=== PATIENT | female | born 1980 | race Caucasian/White ===

== ENCOUNTER 2017-08-29 13:35 | Emergency (ER) | payer OTHER ==
[2017-08-29 13:54] VITALS: TEMP 98.6; BMI 36.8
--- NOTE | 2017-08-29 13:54 | PDOC ---
History of Present Illness - General Chief Complaint: Headache Stated Complaint: HEADACHE Time Seen by Provider: 08/29/17 13:50 - History of Present Illness Initial Comments: 08/29/17 17:00 Chief complaint: Neck and shoulder pain History of present illness: Pain and stiffness over the posterior scalp, lateral neck left, and left trapezius area for approximately 1 week. This is similar to chronic pain in this area that the patient has been experiencing for years, subsequent to craniotomy for Chiari malformation, but more severe this past week. However, she states that "this is not a headache". Review of systems: No fever/chills, URI symptoms, sore throat, cough, chest pain , shortness of breath, abdominal pain, nausea, vomiting, diarrhea, visual or focal neurologic symptoms, unsteadiness of gait. There is been no trauma to the head or neck. She admits stress/anxiety Past medical history: Decompression surgery for Chiari malformation 2004, followed by neurologist, no serious sequelae other than persistent pain in the area of surgery. Mild hypertension controlled by diet. One baby aspirin for prophylaxis Social/family history: No drugs or alcohol or tobacco. Admits to increased stress and anxiety. Otherwise negative Physical exam: Alert and oriented 3, well-developed well-nourished, no acute distress, cooperative. Specifically, does not appear to be in significant pain Afebrile, vital signs normal except for borderline high blood pressure PERRLA, fundi benign, ENT clear. Specifically, optic disks are sharp and central venous pulsations are preserved Neck supple without bruit mass or nodes. There is mild tenderness and spasm over the lateral neck muscles on the left and the trapezius muscle on the left. There is full range of motion of the shoulder without increased pain. There is mild stiffness and pain with patient, flexion, and extension Chest clear to P&A. CV regular without murmur rub or gallop Abdomen benign Neurological C2 to 12 intact. Strength full and symmetric. No focal sensory or motor deficits. Cerebellar function intact. Gait stable and unimpaired Impression: Musculoskeletal pain, CHF, anxiety and stress. This does not appear to be a true headache or due to intracranial lesion Plan: Head CT and further evaluation and treatment depending on results. Past History - Past Medical History Allergies/Adverse Reactions: Allergies Allergy/AdvReac Type Severity Reaction Status Date / Time albiglutide [From Tanzeum] Allergy Mild redness Verified 08/29/17 13:43 and itching at injection site Home Medications: Ambulatory Orders Aspirin [ASA -] 81 mg PO HS 05/03/16 Ascorbic Acid [C-500] 500 mg PO DAILY 08/29/17 Cholecalciferol (Vitamin D3) [Vitamin D3] 1,000 unit PO DAILY 08/29/17 Ibuprofen [Advil -] 800 mg PO TID PRN 08/29/17 COPD: No Diabetes: Yes (TYPE II) HTN: Yes - Surgical History Neurologic Surgery: Yes (BRAIN DECOMPRESSION FOR LILIAN RIVERA 2004) - Suicide/Smoking/Psychosocial Hx Smoking History: Never smoked Hx Alcohol Use: Yes (RARE) Drug/Substance Use Hx: No Substance Use Type: None *Physical Exam - Vital Signs Last Vital Signs Temp Pulse Resp BP Pulse Ox 98.6 F 105 H 16 157/94 98 08/29/17 13:43 08/29/17 13:43 08/29/17 13:43 08/29/17 13:43 08/29/17 13:43 Medical Decision Making - Medical Decision Making 08/29/17 17:[address] is negative. There is no change from prior exam. There is no midline shift, enlargement of the ventricles, or other signs of increased pressure. Pain relief with analgesics. Patient feels much better. Has appointment with her neurologist next week. Fully ambulatory and in no pain or other distress upon discharge to follow-up as recommended *DC/Admit/Observation/Transfer Diagnosis at time of Disposition: Musculoskeletal pain - Discharge Dispostion Disposition: HOME Condition at time of disposition: Improved Admit: No - Referrals Referrals: Carlos Jang MD [Primary Care Provider] - 1 week - Patient Instructions Printed Discharge Instructions: DI for Headache Additional Instructions: See your regular neurologist for further evaluation and treatment. CT scan is unchanged, with no sign of serious abnormality. Relaxation techniques and heat/ ice, massage, stretching etc. for stiffness and pain in the neck and shoulders. - Post Discharge Activity
[2017-08-29] MEDS ORDERED: KETOROLAC TROMETHAMINE 60 MG/2 ML VIAL IM ONE (14:14)
[2017-08-29] MEDS ORDERED: hydrOXYzine PAMOATE 50 MG CAPSULE (FP) PO ONE (14:14)
[2017-08-29] MEDS ORDERED: hydrOXYzine PAMOATE 25 MG CAPSULE (FP) PO ONE (14:21)
[2017-08-29] MEDS ORDERED: KETOROLAC TROMETHAMINE 60 MG/2 ML VIAL ONE (14:21)
[2017-08-29] MEDS ORDERED: HEMOQUE TEST 1 EACH EACH ONE (14:22)
[2017-08-29] MEDS ORDERED: ACETAMINOPHEN WITH CODEINE 300MG/30MG TABLET PO ONE (15:08)
[2017-08-29] MEDS ORDERED: ACETAMINOPHEN WITH CODEINE 300MG/30MG TABLET ONE (15:39)
[2017-08-29 17:03] VITALS: BP 130/89; PULSE 97
== END 2017-08-29 17:04 | disposition home or self-care (01) ==
LOC: FER 13:35
PROC: 3E0233Z Introduction of Anti-inflammatory into Muscle, Percutaneous Approach (ICD-10-PCS; principal; 2017-08-29)
DX: M79.1 Myalgia (principal); Q07.00 Arnold-Chiari syndrome without spina bifida or hydrocephalus; I10 Essential (primary) hypertension; E11.9 Type 2 diabetes mellitus without complications
CPT/HCPCS: 70450-TC; 82962; 84703; 99282-25